=== PATIENT | female | born 1980 | race Caucasian/White ===

== ENCOUNTER 2020-08-12 17:56 | Emergency (ER) | payer OTHER ==
[~2020-08-12] VITALS: Ht 165.1 cm; Wt 74.8 kg
[~2020-08-12 17:56] MED LIST: IBUPROFEN 600600 M1 PO; NORCO 5-325 TA1 EACH PO
[2020-08-12] MEDS ORDERED: NORCO5 PO (19:43)
[2020-08-12 20:23] VITALS: BP 110/60
== END 2020-08-12 20:25 | disposition home or self-care (01) ==
LOC: ER 17:56
DX: S93.121A Dislocation of metatarsophalangeal joint of right great toe, initial encounter (principal); Z88.2 Allergy status to sulfonamides; V49.88XA Car occupant (driver) (passenger) injured in other specified transport accidents, initial encounter; Y93.89 Activity, other specified; Y92.413 State road as the place of occurrence of the external cause; Y99.9 Unspecified external cause status